=== PATIENT | female | born 1955 | race Caucasian/White ===

== ENCOUNTER 2017-02-18 14:58 | Emergency (ER) | payer SELFPAY ==
[~2017-02-18 14:58] MED LIST: CLIN1CAP6 PO; FLAG500T PO; PRAV20 PO; PRAV20TA PO; SULF1TAB47 PO
[2017-02-18 15:01] VITALS: BP 144/88; PULSE 101; RESP 12; TEMP 98.6; O2SAT 99
--- NOTE | 2017-02-18 15:39 | RADRPT ---
EXAM DATE/TIME: 02/18/2017 15:21 [place] COMPARISON: No previous studies available for comparison. INDICATIONS : Right hand proximal 4th finger pain, caught on checkout baging table at [facility] MEDICAL HISTORY : None. SURGICAL HISTORY : None. ENCOUNTER: Initial ACUITY: 3 days PAIN SCORE: 4/10 LOCATION: Right Hand FINDINGS: Three view examination of the right hand demonstrates no soft tissue swelling, dislocation, or fractu re. The carpal bones appear intact. The interphalangeal and metacarpophalangeal joints are intact. Bony mineralization is normal. CONCLUSION: No acute bony abnormality. Jack Howard MD on February 18, 2017 at 15:37 Board Certified Radiologist. This report was verified electronically.
--- NOTE | 2017-02-18 17:54 | PD ---
HPI Chief Complaint: Musculoskeletal Complaint Time Seen by Provider: 17:53 Travel History International Travel<30 days: No Contact w/Intl Traveler<30days: No Traveled to known affect area: No History of Present Illness HPI 61-year-old female presents to emergency department complaining of right ring finger pain. States that she was at [facility] and her finger got caught in a bag on the carousel and twisted her finger. States that she is having throbbing pain that increases with movement and decreases with rest. She does have full range of motion but with pain. Her pain is moderate and occasionally numb. She is not taken any medication to relieve her pain. Patient denies tingling. Patient denies fever, chills. Denies chronic medication use medical conditions. States she did not go to the emergency department yesterday because she did not have a ride. 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) Hysterectomy: No Insulin Pump: No Joint Replacement: No Pacemaker: No Thoracic Surgery: Yes (LUMP REMOVED L BREAST) Other Surgery: Yes (LUMPECTOMY LT BREAST) Social History Alcohol Use: Yes Tobacco Use: Yes (1/2 PK QD) Substance Use: No Allergies-Medications (Allergen,Severity, Reaction): Coded Allergies: latex (Unverified Allergy, Severe, CANT BREATH, COUGH, 11/24/16) shellfish derived (Unverified Adverse Reaction, Intermediate, NAUSEA/ VOMITING, 11/24/16) Reported Meds & Prescriptions Reported Meds & Active Scripts Active Ibuprofen 800 Mg Tab 800 Mg PO TID 5 Days Review of Systems Except as stated in HPI: all other systems reviewed are Neg Physical Exam Narrative GENERAL: Well-nourished, well-developed patient. SKIN: Focused skin assessment warm/dry. HEAD: Normocephalic. EYES: No scleral icterus. No injection or drainage. CARDIOVASCULAR: Regular rate and rhythm without murmurs, gallops, or rubs. RESPIRATORY: Breath sounds equal bilaterally. No accessory muscle use. GASTROINTESTINAL: Abdomen soft, non-tender, nondistended. MUSCULOSKELETAL: No cyanosis, or edema. Right ring finger- mild edema and developing ecchymosis. Neurovascularly intact. Full range of motion with tenderness. TTP to metacarpal and PIP joints. No crepitus or deformities noted. BACK: Nontender without obvious deformity. No CVA tenderness. Data Data Last Documented VS Vital Signs Date Time Temp Pulse Resp B/P (MAP) Pulse Ox O2 Delivery O2 Flow Rate FiO2 02/18/17 18:23 02/18/17 15:01 98.6 101 12 99 Orders Orders Hand, Complete ([id number]) (02/18/17 ) Ketorolac Inj (Toradol Inj) (02/18/17 18:00) Ed Discharge Order (02/18/17 17:58) Splint Or Brace Apply/Monitor (02/18/17 18:01) [facility] Medical Decision Making Medical Screen Exam Complete: Yes Emergency Medical Condition: Yes Differential Diagnosis Finger sprain versus strain versus fracture Narrative Course 61-year-old female presents to emergency department complaining of right ring finger pain. States that she was at [facility] and her finger got caught in a bag on the carousel and twisted her finger. States that she is having throbbing pain that increases with movement and decreases with rest. She does have full range of motion but with pain. Her pain is moderate and occasionally numb. She is not taken any medication to relieve her pain. Patient denies tingling. Patient denies fever, chills. Denies chronic medication use medical conditions. States she did not go to the emergency department yesterday because she did not have a ride to the hospital. Patient is right-handed Physical exam: in no apparent distress. right ring finger TTP, mild edema, neurovascularly intact. Imaging study: No acute process of hand Finger splinted and jenny taped. Toradol IM in the ED. Ibuprofen 800mg TID Rx for outpatient. Pt advised to follow up with her PCP and hand specialist for further evaluation Return to ED for worsening pain. Diagnosis Primary Impression: Finger sprain Qualified Codes: S63.634A - Sprain of interphalangeal joint of right ring finger, initial encounter Referrals: Hand Surgeon Primary Care Physician Additional Instructions: Use ice or heat for symptom relief. If symptoms persist or worsen, return to the emergency department. Follow up with your primary care physician within 2 days. Take medications as prescribed. Use splint for comfort measures for 1-2 days, then ensure good range of motion. Scripts Ibuprofen (Ibuprofen) 800 Mg Tab 800 MG PO TID for Arthritis Pain for 5 Days, TAB 0 Refills Prov: Shiva Vargas MD 02/18/17 Disposition: 01 DISCHARGE HOME Condition: Stable Olena Mercer Feb 18, 2017 17:54
[2017-02-18] MEDS ORDERED: IBUP1TAB7 PO (17:55)
[2017-02-18] MEDS ORDERED: KETOROLAC TROMETHAMINE 60 MG/2 ML (IM) VIAL IM ONE (18:00)
== END 2017-02-18 18:43 | disposition home or self-care (01) ==
LOC: NEPK 14:58
DX: S63.634A Sprain of interphalangeal joint of right ring finger, initial encounter (principal); M06.9 Rheumatoid arthritis, unspecified; F32.9 Major depressive disorder, single episode, unspecified; I10 Essential (primary) hypertension; F17.200 Nicotine dependence, unspecified, uncomplicated; W23.0XXA Caught, crushed, jammed, or pinched between moving objects, initial encounter; Y92.512 Supermarket, store or market as the place of occurrence of the external cause
CPT/HCPCS: 29130; 73130; 96372; 99284; J1885